=== PATIENT | female | born 1985 | race African-American/Black ===

== ENCOUNTER 2023-02-17 13:18 | Emergency (ER) | payer SELFPAY ==
[~2023-02-17] VITALS: Ht 165.1 cm; Wt 111.0 kg
[2023-02-17] MEDS ORDERED: ACETAMINOPHEN 325MG TABLET PO PRN (13:45)
[2023-02-17 14:14] LABS: HEMATOCRIT. 31.1 % (36.0-48.0); MEAN CORPUSCULAR HEMOGLOBIN 25.8 pg (28.0-32.0); MEAN PLATELET VOLUME 7.5 fl (7.4-10.4); PLATELET 417 x1000/uL (130-400); RED BLOOD CELL COUNT 3.89 mill/uL (4.2-5.4); RED CELL DISTRIBUTION WIDTH 16.2 % (11.6-14.6)
[2023-02-17 14:31] LABS: CHLORIDE 105 mEq/L (98-107)
[2023-02-17 14:54] LABS: PLATELET ESTIMATE NORMAL
[2023-02-17 14:56] LABS: B-HCG QUANTITATIVE 2289 mIU/mL (<3)
[2023-02-17] MEDS ORDERED: KETOROLAC 30MG/ML VIAL IM ONE (15:30)
[2023-02-17 15:59] LABS: CLARITY URINE CLEAR (CLEAR); COLOR URINE YELLOW (YELLOW); KETONES URINE 2+ (NEGATIVE); LEUKOCYTE ESTERASE URINE NEGATIVE (NEGATIVE); NITRITE URINE NEGATIVE (NEGATIVE); OCCULT BLOOD URINE 3+ (NEGATIVE); PH URINE 5.5 (4.5-8.0); PROTEIN URINE 1+ (NEGATIVE); SPECIFIC GRAVITY URINE 1.032 (1.005-1.030); UROBILINOGEN URINE 0.2 E.U./dL (0.2-1.0)
[2023-02-17] MEDS ORDERED: T3 PO ×3 (16:10→17:37)
[2023-02-17] MEDS ORDERED: METH PO ×3 (16:10→17:37)
[2023-02-17] MEDS ORDERED: IBUP-2029 MT ×3 (16:10→17:37)
[2023-02-17] MEDS ORDERED: METHYLERGONOVINE MALEATE 0.2MG TABLET PO ONE (16:15)
[2023-02-17] MEDS ORDERED: MISOPROSTOL 200MCG TABLET PO ONE (16:15)
[2023-02-17 17:30] VITALS: BP 134/61
== END 2023-02-17 17:52 | disposition home or self-care (01) ==
LOC: ER 15:06
DX: O03.9 Complete or unspecified spontaneous abortion without complication (principal); Z3A.01 Less than 8 weeks gestation of pregnancy
CPT/HCPCS: 36415; 76801; 76817; 80053; 81003; 84702; 85025; 86850; 86900; 86901; 96372; 99285; J1885; Z7610